=== PATIENT | female | born 1965 | race Caucasian/White ===

== ENCOUNTER → 2021-08-27 10:31 | Outpatient (CLI) | payer OTHER, SELFPAY ==
[2021-08-27 11:03] LABS: COVID19 -Nasal RAPID Negative (Negative)
== END ==
PROVIDERS: PCP Nurse Practitioner; Referring Provider Family Medicine Sleep Medicine; Visit Provider Family Medicine Sleep Medicine
DX: Z20.822 Contact with and (suspected) exposure to COVID-19 (principal)
CPT/HCPCS: 87635; C9803

== ENCOUNTER 2021-08-28 07:30 | Day surgery (SDC) | payer OTHER, SELFPAY ==
[2021-08-28] VITALS (8 sets, daily range): BP systolic 120–158; BP diastolic 81–97; PULSE 80–104; RESP 14–18; TEMP 36.1–37; O2SAT 95–98; BMI 41.8
--- NOTE | 2021-08-28 | PATH_ITS ---
[facility] Accession Number: [id number] . 01 Material submitted: . colon - RANDOM COLON BIOPSIES . 02 Diagnosis: Random Colon Biopsies: Colonic mucosa with no diagnostic abnormality. Negative for active, chronic, and microscopic colitis. Negative for dysplasia and malignancy. . MRV 09/02/2021 1124 Local . 02 Electronically signed: . Ariella Bah MD, Pathologist NPI- [id number] . 01 Gross description: . RANDOM COLON BIOPSIES: Received in formalin are multiple fragment(s) of , soft tissue measuring 1.3 x 0.3 x 0.2 cm in aggregate submitted entirely in 1 cassette(s) /TRC 08/30/2021 1300 Local . 02 Pathologist provided ICD-10: Z12.11 . 02 CPT . 875926 Performed at: [facility] [address] [id number] MD Stanislaw Antoine MD Phone: [phone] [facility]formed at: [facility] [address] [place], [place] [id number] MD Roopa Wallace MD Phone: [phone]
[2021-08-28] MEDS: SODIUM CHLORIDE 0.9% 1,000 ML 84 ML IV (08:29)
--- NOTE | 2021-08-28 09:05 | PM.PREOP ---
Pre-operative Note COVID-19 COVID-19 status: Negative Interval Note History & Physical reviewed/Exam performed by Physician: Yes Changes to H&P: No H&P completed within 30 days and has changed as indicated here:: none ASA Class (for procedural sedation): II
--- NOTE | 2021-08-28 09:06 | P.OP.COLON_ITS ---
Operative Date/Time/Diagnoses Date of procedure: 08/28/21 Pre-op diagnosis: See indications and findings Procedure & Clinicians Study performed: Colonoscopy Indications: Diarrhea Surgeon: Amisha Buitrago Procedure Notes Procedure in detail: After informed consent was obtained the patient was placed in left lateral d ecubitus position. The video colonoscope was introduced the rectum slowly advanced to the cecum. Preparation was good. On slow withdrawal mucosa was carefully examined. The scope was removed. The patient tolerated the procedure well. Blood loss none Complications none Sedation mac Findings 1. Extensive diverticulosis with luminal narrowing in the sigmoid colon. 2. Otherwise negative colonoscopy to cecum. Biopsies taken randomly in 1 bottle to rule out microscopic colitis. Follow-up with Dr. Abreu in the office to go over results within 2 weeks
--- NOTE | 2021-08-28 10:27 | SUR.PHASEII ---
belly soft, no nausea no pain, BP close to base line, elevated. instruction given to keep log of bp and give to PCP if stays elevated.
== END 2021-08-28 10:15 | disposition home or self-care (01) ==
PROVIDERS: PCP Nurse Practitioner; Referring Provider Internal Medicine Gastroenterology; Visit Provider Internal Medicine Gastroenterology
PROC: 0DJD8ZZ Inspection of Lower Intestinal Tract, Via Natural or Artificial Opening Endoscopic (ICD-10-PCS; CPT 45378; principal; 2021-08-28 08:30)
DX: R19.7 Diarrhea, unspecified (principal); R10.33 Periumbilical pain; Z83.71 Family history of colonic polyps; E10.9 Type 1 diabetes mellitus without complications; Z79.84 Long term (current) use of oral hypoglycemic drugs; F17.210 Nicotine dependence, cigarettes, uncomplicated; K57.30 Diverticulosis of large intestine without perforation or abscess without bleeding
CPT/HCPCS: 45380